=== PATIENT | male | born 1965 | race Caucasian/White ===

== ENCOUNTER 2019-01-30 06:26 | Observation (INO) ==
[~2019-01-30 06:26] MED LIST: LIDOCAINE W/ SODIUM BICARB 0.5 ML SYR ONE; LIDOCAINE W/ SODIUM BICARB 0.5 ML SYR SUBD ONE; Lactated Ringers 1,000 ML PRIMARY IV ONE; Nasal Sanitizer POPSWAB ampule 3 AMP (Nozin) PREOP DOSE ENOS SCH; VANCOMYCIN IV ONE; Vancomycin-PHA to Dose IV PRN; ceFAZolin Inj 2gm (Premix) 2 GM/50 ML BAG IV ONE
[2019-01-30] MEDS ORDERED: Vancomycin Inj 1.25gm vial IV ONE (06:34)
[2019-01-30] MEDS ORDERED: Sodium Chloride 0.9% 500 ML ONE (06:38)
[2019-01-30] MEDS ORDERED: Sodium Chloride 0.9% 500 ML IV ONE (07:29)
[2019-01-30] MEDS ORDERED: THROMBIN (BOVINE) 20,000 UNIT KIT TOPICAL ONE (07:35)
[2019-01-30] MEDS ORDERED: Sodium Chloride 0.9% vial 10 ML ONE (07:35)
[2019-01-30] MEDS ORDERED: BACITRACIN 50,000 UNIT VIAL IRRIG ONE (07:35)
[2019-01-30] MEDS ORDERED: SUCCINYLCHOLINE CHLORIDE 20 MG/1 ML - 10 ML ONE (08:29)
[2019-01-30] MEDS ORDERED: MIDAZOLAM HCL 2 MG/2 ML VIAL ONE (08:30)
[2019-01-30] MEDS ORDERED: fentaNYL Inj 100 MCG/2 ML VIAL ONE ×2 (08:30→09:48)
[2019-01-30] MEDS ORDERED: PROPOFOL 10 MG/1 ML (200 MG/20 ML) VIAL IV ONE (08:31)
[2019-01-30] MEDS ORDERED: LIDOCAINE MPF 2% - 5 ML (20 MG/1 ML) ONE (09:04)
[2019-01-30] MEDS ORDERED: Lactated Ringers 1,000 ML PRIMARY IV ONE (10:03)
[2019-01-30] MEDS ORDERED: DEXAMETHASONE PF 10 MG/1 ML VIAL ONE (10:03)
[2019-01-30] MEDS ORDERED: fentaNYL Inj 100 MCG/2 ML VIAL IVP PRN (10:15)
[2019-01-30] MEDS ORDERED: LIDOCAINE W/ SODIUM BICARB 0.5 ML SYR SUBD PRN (10:15)
[2019-01-30] MEDS ORDERED: Ondansetron ODT Tab 8 MG TAB PO PRN (10:15)
[2019-01-30] MEDS ORDERED: ATROPINE SULFATE 0.4 MG/1 ML VIAL IVP PRN (10:15)
[2019-01-30] MEDS ORDERED: Prochlorperazine Edisylate Inj 10mg/2ml vial IVP PRN (10:15)
[2019-01-30] MEDS ORDERED: Lactated Ringers 1,000 ML PRIMARY IV SCH (10:15)
[2019-01-30] MEDS ORDERED: ONDANSETRON 4 MG/2 ML VIAL ONE (10:18)
[2019-01-30] MEDS ORDERED: PHENYLEPHRINE 10,000 MCG/1 ML VIAL ONE (10:19)
[2019-01-30] MEDS ORDERED: Vancomycin Inj 1gm vial ONE (10:37)
[2019-01-30] MEDS ORDERED: KETOROLAC 30 MG/1 ML VIAL ONE (10:58)
[2019-01-30] MEDS: HYDROmorphone 2 MG/1 ML IVP PRN ×3 (11:21→12:03)
[2019-01-30] MEDS ORDERED: DIAZEPAM 10 MG/2 ML (5 MG/1 ML) CARPUJECT ONE (11:30)
[2019-01-30] MEDS: DIAZEPAM 10 MG/2 ML (5 MG/1 ML) CARPUJECT IVP ONE ×2 (11:33→12:06)
[2019-01-30] MEDS ORDERED: Zolpidem Tab 5 MG TAB PO PRN (14:18)
[2019-01-30] MEDS ORDERED: LABETALOL 100 MG/20 ML (5 MG/1 ML) MDV IVP PRN (14:18)
[2019-01-30] MEDS ORDERED: ACETAMINOPHEN 325 MG TABLET PO PRN (14:18)
[2019-01-30] MEDS ORDERED: ONDANSETRON 4 MG/2 ML VIAL IVP PRN (14:18)
[2019-01-30] MEDS ORDERED: Ondansetron ODT Tab 4 MG TAB PO PRN (14:18)
[2019-01-30] MEDS ORDERED: DOCUSATE 100 MG CAPSULE PO PRN (14:18)
[2019-01-30] MEDS ORDERED: MORPHINE SULFATE 2 MG/1 ML IVP PRN (14:18)
[2019-01-30] MEDS ORDERED: HYDRALAZINE 20 MG/1 ML IVP PRN (14:18)
[2019-01-30] MEDS ORDERED: CALCIUM CARBONATE 500 MG (TUMS) CHEWABLE TABLET PO PRN (14:18)
[2019-01-30] MEDS: oxyCODONE-ACETAMINOPHEN 5-325 TAB PO PRN ×3 (14:37→22:14)
[2019-01-30] MEDS: D5-1/2NS + 20mEq KCL 1,000 ML PRIMARY IV SCH (16:10)
[2019-01-30] MEDS ORDERED: Sodium Chloride 0.9% 100 ML IV ONE (20:08)
[2019-01-30] MEDS: ceFAZolin Inj 1 GM in Sodium Chloride 0.9% 100 ML IV SCH (21:49)
[2019-01-31] MEDS: D5-1/2NS + 20mEq KCL 1,000 ML PRIMARY IV SCH (01:37)
[2019-01-31] MEDS: oxyCODONE-ACETAMINOPHEN 5-325 TAB PO PRN ×3 (02:34→10:35)
[2019-01-31] MEDS: ceFAZolin Inj 1 GM in Sodium Chloride 0.9% 100 ML IV SCH (05:10)
[2019-01-31 06:50] VITALS: RESP 12
[2019-01-31 10:21] VITALS: BP 120/78; TEMP 99; O2SAT 94
== END 2019-01-31 11:48 | disposition home or self-care (01) ==
LOC: MED/SURG 06:26 → OR 06:26
PROVIDERS: ADMIT Neurological Surgery; ATTEND Neurological Surgery